=== PATIENT | male | born 1965 | race Caucasian/White ===

== ENCOUNTER 2017-11-22 23:33 | Emergency (ER) | payer BC, OTHER ==
[2017-11-23] MEDS ORDERED: ASPIRIN 81 MG CHEWABLE TABLET ONE (00:28)
[2017-11-23 00:34] LABS: Absolute Lymphocytes (CBC) 2.1 K/uL (0.7-4.9); Absolute Neutrophil 3.7 K/uL (1.8-8.0); Basophils % 0.9 % (0-1.3); Eosinophils % 5.4 % (0-4.4); Hematocrit 41.7 % (39.6-49.0); Lymphocytes % 29.5 % (15.3-44.8); MCH 31.6 pg (27.0-35.0); MCV 91.9 fL (80-100); Monocytes % 13.3 % (3.3-12.3); RBC Red Blood Cell Count 4.54 M/uL (4.33-5.43)
[2017-11-23 00:46] LABS: Potassium 3.6 mEq/L (3.6-5.0)
[2017-11-23 00:48] LABS: Protime INR 1.01
[2017-11-23 00:53] LABS: Albumin 4.1 g/dL (3.2-5.5); Bilirubin Direct 0.1 mg/dL (0-0.2); Bilirubin Total 0.7 mg/dL (0.3-1.2)
[2017-11-23 01:17] LABS: CKMB Creatine Kinase MB 2.4 ng/ml (0.3-4.0)
--- NOTE | 2017-11-23 03:13 | EDPHYS ---
Physician Documentation [facility] Name: Michelle Herndon Age: 52 yrs Sex: Male : 1965 Arrival Date: 11/22/2017 Time: 23:37 Bed 26 Private MD: ED Physician Rodrigo Callahan HPI: 11/23 00:16 This 52 yrs old Male presents to ER via Ambulatory with complaints of Chest cp Pain, Arm Pain. 00:16 The patient or guardian complains of pain, that is acute. anterior left shoulder. cp Context: pain awoke patient this evening. 00:16 Associated signs and symptoms: Pertinent negatives: diaphoresis, dyspnea, neck pain, cp Numbness in left arm Weakness in left arm. 00:16 Onset: The symptoms/episode began/occurred at 21:30. Modifying factors: The symptoms cp are aggravated by nothing. Severity of symptoms: in the emergency department the symptoms have improved, moderately. Historical: - Allergies: 11/22 23:52 No Known Allergies; ed1 - Home Meds: 23:52 None [Active]; ed1 - PMHx: 23:52 None; ed1 - PSHx: 23:52 None; ed1 - Immunization history:: Adult Immunizations up to date. - Social history:: Smoking status: Patient/guardian denies using tobacco, Patient uses alcohol, only on a social basis. ROS: 11/23 00:20 Constitutional: Negative for body aches, chills, fever, poor PO intake. cp 00:20 Eyes: Negative for injury, pain, redness, and discharge. cp 00:20 ENT: Negative for drainage from ear(s), ear pain, sore throat, difficulty swallowing, difficulty handling secretions. 00:20 Neck: Negative for pain with movement, pain at rest, rash, stiffness, tenderness, bony tenderness. 00:20 Cardiovascular: Negative for edema, palpitations. 00:20 Respiratory: Negative for cough, shortness of breath, wheezing. 00:20 Abdomen/GI: Negative for abdominal pain, nausea, vomiting, and diarrhea, black/tarry stool, rectal bleeding. 00:20 Back: Negative for pain at rest, pain with movement, radiated pain. 00:20 MS/extremity: Positive for pain, of the anterior left shoulder, Negative for injury or acute deformity, decreased range of motion, paresthesias. 00:20 Skin: Negative for cellulitis, rash. 00:20 Neuro: Negative for altered mental status, dizziness, loss of consciousness, syncope, near syncope, weakness. 00:20 All other systems are negative. Exam: 00:30 ECG was reviewed by the Attending Physician. cp 00:30 Constitutional: The patient appears in no acute distress, alert, awake, cp non-diaphoretic, non-toxic, well developed, well nourished. 00:30 Head/Face: Normocephalic, atraumatic. Eyes: Pupils equal round and reactive to light, cp extra-ocular motions intact. Lids and lashes normal. Conjunctiva and sclera are non-icteric and not injected. Cornea within normal limits. Periorbital areas with no swelling, redness, or edema. ENT: Nares patent. No nasal discharge, no septal abnormalities noted. Tympanic membranes are normal and external auditory canals are clear. Oropharynx with no redness, swelling, or masses, exudates, or evidence of obstruction, uvula midline. Mucous membranes moist. Neck: Trachea midline, no thyromegaly or masses palpated, and no cervical lymphadenopathy. Supple, full range of motion without nuchal rigidity, or vertebral point tenderness. No Meningismus. Chest/axilla: Normal chest wall appearance and motion. Nontender with no deformity. No lesions are appreciated. 00:30 Cardiovascular: Rate: normal, Rhythm: regular, Pulses: Pulses are 2+ in right radial artery and left radial artery. Heart sounds: murmur, not appreciated, rub, not appreciated, gallop, not appreciated, Edema: is not appreciated, JVD: is not appreciated. 00:30 Respiratory: the patient does not display signs of respiratory distress, Respirations: normal, no use of accessory muscles, no retractions, no splinting, no tachypnea, labored breathing, is not present, Breath sounds: are clear throughout, no decreased breath sounds, no stridor, no wheezing. 00:30 Abdomen/GI: Inspection: abdomen appears normal, Bowel sounds: active, all quadrants, Palpation: abdomen is soft and non-tender, in all quadrants. 00:30 Back: pain, is absent, ROM is normal. 00:30 Musculoskeletal/extremity: Extremities: grossly normal except: noted in the anterior left shoulder: pain, tenderness, There is no evidence of decreased ROM, deformity, ROM: full active range of motion, in the left shoulder, Sensation intact. 00:30 Skin: cellulitis, is not appreciated, no rash present. 00:30 Neuro: Orientation: to person, place \T\ time. Mentation: lucid, able to follow commands, Cerebellar function: is grossly normal, Motor: moves all fours, strength is normal, Sensation: no obvious gross deficits. 02:33 ECG was reviewed by the Attending Physician. cp Vital Signs: 11/22 23:52 BP 128 / 75; Pulse 58; Resp 13; Temp 98.4(O); Pulse Ox 96% on R/A; Weight 111.13 kg ed1 (R); Height 5 ft. 11 in. (180.34 cm); Pain 3/10; 11/23 01:12 BP 121 / 79; Pulse 61; Resp 18; Pulse Ox 97% on R/A; mb3 02:10 BP 129 / 78; Pulse 56; Resp 18; Pulse Ox 96% on R/A; mb3 02:56 BP 121 / 75; Pulse 56; Resp 18; Pulse Ox 96% on R/A; mb3 11/22 23:52 Body Mass Index 34.17 (111.13 kg, 180.34 cm) ed1 MDM: 00:12 Patient medically screened. cp 03:07 Differential diagnosis: tendonitis, acute SC, biceps tendonitis, pneumothorax. Data cp reviewed: vital signs, nurses notes, EKG, radiologic studies, plain films. Test interpretation: by ED physician or midlevel provider: ECG, plain radiologic studies. 11/23 00:19 Order name: Basic Metabolic Panel; Complete Time: : cp 11/23 01:04 Interpretation: Normal except: BUN 24; GFR 76. cp 11/23 00:19 Order name: BNP; Complete Time: : cp 11/23 00:19 Order name: CBC with Diff; Complete Time: 01:03 cp 11/23 01:04 Interpretation: Normal except: MN% 13.3; EOSINOPHIL % 5.4. cp 11/23 00:19 Order name: Ckmb; Complete Time: :41 cp 11/23 00:19 Order name: CPK; Complete Time: 01: cp 11/23 01:03 Interpretation: Abnormal: CPK 275. cp 11/23 00:19 Order name: LFT's; Complete Time: 01: cp 11/23 00:18 Order name: Chest Single View XRAY ed1 11/23 00:19 Order name: Magnesium; Complete Time: 01:41 cp 11/23 00:19 Order name: PT-INR; Complete Time: 01:03 cp 11/23 00:19 Order name: Ptt, Activated; Complete Time: 01:03 cp 11/23 00:19 Order name: Troponin (emerg Dept Use Only); Complete Time: 01:41 cp 11/23 00:25 Order name: XRAY Shoulder LEFT 2 view cp 11/23 02:15 Order name: Troponin I cp 11/23 00:19 Order name: EKG; Complete Time: 00:20 cp 11/23 00:19 Order name: Cardiac monitoring; Complete Time: 00: cp 11/23 00:19 Order name: EKG - Nurse/Tech; Complete Time: 00: cp 11/23 00:19 Order name: IV Saline Lock; Complete Time: 00: cp 11/23 00:19 Order name: Labs collected and sent; Complete Time: 00: cp 11/23 00:19 Order name: O2 Per Protocol; Complete Time: 00: cp 11/23 00:19 Order name: O2 Sat Monitoring; Complete Time: 00: cp 11/23 02:15 Order name: EKG - Nurse/Tech; Complete Time: 02:55 cp EC:30 Rate is 66 beats/min. Rhythm is regular. UT interval is normal. QRS interval is normal. cp QT interval is normal. No ST changes noted. Interpreted by me. Reviewed by me. 02:33 Rate is 56 beats/min. Rhythm is regular. UT interval is normal. QRS interval is normal. cp QT interval is normal. T waves are Flattened in lead III. No ST changes noted. Interpreted by me. Reviewed by me. Administered Medications: 00:29 Drug: Aspirin Chewable Tablet 324 mg Route: PO; ed1 02:55 Follow up: Response: No adverse reaction mb3 Disposition: 06:25 Co-signature as Attending Physician, Rodrigo Callahan MD. pkl Disposition: 11/23/17 03:12 Discharged to Home. Impression: Pain in left shoulder. - Condition is Stable. - Discharge Instructions: Musculoskeletal Pain, Shoulder Pain, Aspirin and Your Heart. - Prescriptions for Naprosyn 500 mg Oral Tablet - take 1 tablet by ORAL route 2 times per day take with food; 20 tablet. - Medication Reconciliation Form, Thank You Letter, Antibiotic Education, Prescription Opioid Use form. - Follow up: Zachery Martin MD; When: 1 - 2 days; Reason: Recheck today's complaints. - Problem is new. - Symptoms have improved. Signatures: Dispatcher [employer] EDIN Rodrigo Callahan MD MD pkl Idalmis Dave, TOOL SALVAGE WORKER TOOL SALVAGE WORKER ed1 Jayesh Qureshi PA PA cp Barnett, Mark RN RN mb3 Corrections: (The following items were deleted from the chart) 00:29 00:20 Chest Single View+RAD.RAD.BRZ ordered. [facility] EDIN 03:16 03:12 11/23/2017 03:12 Discharged to Home. Impression: Pain in left shoulder. Condition mb3 is Stable. Forms are Medication Reconciliation Form, Thank You Letter, Antibiotic Education, Prescription Opioid Use. Follow up: Zachery Martin; When: 1 - 2 days; Reason: Recheck today's complaints. Problem is new. Symptoms have improved. cp
--- NOTE | 2017-11-23 03:13 | ER ---
Nurse's Notes [facility] Name: Michelle Herndon Age: 52 yrs Sex: Male : 1965 Arrival Date: 11/22/2017 Time: 23:37 Bed 26 Private MD: Diagnosis: Pain in left shoulder Presentation: 11/22 23:50 Presenting complaint: Patient states: I woke up and my chest was hurting all the way ed1 over to my left arm and elbow. Transition of care: patient was not received from another setting of care. Onset of symptoms was November 22, 2017. Initial Sepsis Screen: Does the patient meet any 2 criteria? No. Patient's initial sepsis screen is negative. Does the patient have a suspected source of infection? No. Patient's initial sepsis screen is negative. Care prior to arrival: Medication(s) given: Christina-malindaer. 23:50 Method Of Arrival: Ambulatory ed1 11/23 00:05 Acuity: GRETA 3 mb3 Triage Assessment: 11/22 23:52 General: Appears in no apparent distress. Behavior is calm, cooperative. Pain: ed1 Complains of pain in chest Pain radiates to left arm Pain currently is 3 out of 10 on a pain scale. at worst was 6 out of 10 on a pain scale. Quality of pain is described as sharp, Pain began 1 hour ago. Is continuous. Cardiovascular: Reports chest pain, Denies diaphoresis, fatigue, lightheadedness, nausea, palpitations, shortness of breath, syncope, vomiting, Heart tones S1 S2 present Capillary refill < 3 seconds Clubbing of nail beds is absent JVD is absent Patient's skin is warm and dry. Pulses are all present. Edema is absent. Rhythm is sinus rhythm Chest pain is described as mild, quality is sharp, is located in chest wall radiates to left arm(s) began 1 hour prior to arrival episodes are continuous. Historical: - Allergies: 23:52 No Known Allergies; ed1 - Home Meds: 23:52 None [Active]; ed1 - PMHx: 23:52 None; ed1 - PSHx: 23:52 None; ed1 - Immunization history:: Adult Immunizations up to date. - Social history:: Smoking status: Patient/guardian denies using tobacco, Patient uses alcohol, only on a social basis. Screenin:55 Abuse screen: Denies threats or abuse. Denies injuries from another. Nutritional ed1 screening: No deficits noted. Tuberculosis screening: No symptoms or risk factors identified. Fall Risk None identified. Assessment: 23:55 General: Appears in no apparent distress. Behavior is calm, cooperative. Pain: ed1 Complains of pain in chest Pain radiates to left arm Pain currently is 3 out of 10 on a pain scale. Quality of pain is described as sharp, Pain began 1 hour ago. Is continuous. Neuro: Level of Consciousness is awake, alert, obeys commands, Oriented to person, place, time, situation. Cardiovascular: Reports chest pain, Denies diaphoresis, fatigue, lightheadedness, nausea, palpitations, shortness of breath, syncope, vomiting, Heart tones S1 S2 present Capillary refill < 3 seconds in bilateral fingers Clubbing of nail beds is absent JVD is absent Patient's skin is warm and dry. Pulses are all present. Edema is absent. Rhythm is sinus rhythm Chest pain is described as mild, quality is sharp, is located in chest wall radiates to left arm(s) began 1 hour prior to arrival episodes are continuous. Respiratory: Airway is patent Respiratory effort is even, unlabored, Respiratory pattern is regular, symmetrical, Breath sounds are clear bilaterally. Denies cough, shortness of breath. GI: No signs and/or symptoms were reported involving the gastrointestinal system. : No signs and/or symptoms were reported regarding the genitourinary system. EENT: No signs and/or symptoms were reported regarding the EENT system. Derm: Skin is pink, warm \T\ dry. 11/23 00:00 Reassessment: I agree with above assessment. fc 01:12 Reassessment: No changes from previously documented assessment. Patient and/or family mb3 updated on plan of care and expected duration. Pain level reassessed. Patient is alert, oriented x 3, equal unlabored respirations, skin warm/dry/pink. 02:10 Reassessment: No changes from previously documented assessment. Patient and/or family mb3 updated on plan of care and expected duration. Pain level reassessed. Patient is alert, oriented x 3, equal unlabored respirations, skin warm/dry/pink. Vital Signs: 11/22 23:52 BP 128 / 75; Pulse 58; Resp 13; Temp 98.4(O); Pulse Ox 96% on R/A; Weight 111.13 kg ed1 (R); Height 5 ft. 11 in. (180.34 cm); Pain 3/; 11/23 01:12 BP 121 / 79; Pulse 61; Resp 18; Pulse Ox 97% on R/A; mb3 02:10 BP 129 / 78; Pulse 56; Resp 18; Pulse Ox 96% on R/A; mb3 02:56 BP 121 / 75; Pulse 56; Resp 18; Pulse Ox 96% on R/A; mb3 11/22 23:52 Body Mass Index 34.17 (111.13 kg, 180.34 cm) ed1 ED Course: 11/22 23:37 Patient arrived in ED. al2 23:50 Idalmis Dave LVN is Primary Nurse. ed1 23:52 Arm band placed on left wrist. ed1 23:55 Patient has correct armband on for positive identification. Placed in gown. Bed in low ed1 position. Call light in reach. Adult w/ patient. monitoring manager on. Pulse ox on. NIBP on. 23:55 Initial lab(s) drawn, by ED staff, held in ED. Inserted saline lock: 20 gauge in right ed1 forearm, using aseptic technique. Blood collected. Patient maintains SpO2 saturation greater than 95% on room air. 11/23 00:05 Triage completed. mb3 00:11 Jayesh Qureshi PA is PHCP. cp 00:11 Rodrigo Callahan MD is Attending Physician. cp 00:27 X-ray completed. Portable x-ray completed in exam room. Patient tolerated procedure kw well. 00:32 Chest Single View XRAY In Process Unspecified. EDMS 00:45 XRAY Shoulder LEFT 2 view In Process Unspecified. EDMS 03:12 Zachery Martin MD is Referral Physician. cp 03:16 No provider procedures requiring assistance completed. IV discontinued, intact, mb3 bleeding controlled, No redness/swelling at site. Pressure dressing applied. Administered Medications: 00:29 Drug: Aspirin Chewable Tablet 324 mg Route: PO; ed1 02:55 Follow up: Response: No adverse reaction mb3 Outcome: 03:12 Discharge ordered by . cp 03:16 Discharged to home ambulatory. mb3 03:16 Condition: stable 03:16 Discharge instructions given to patient, Instructed on discharge instructions, follow up and referral plans. medication usage, Demonstrated understanding of instructions, follow-up care, medications, Prescriptions given X 1. 03:16 Patient left the ED. mb3 Signatures: Dispatcher [employer] EDMS Anai Villafana, RN RN Idalmis Joyce LVN LVN ed1 Shabana Atkinson Corey, PA PA cp Love, Angelica al2 Sean Aparicio RN RN mb3
--- NOTE | 2017-11-23 07:57 | EKG ---
Test Date: 2017-11-23 Test Time: 02:26:21 Carpentry Teacher: MB MEASUREMENT RESULTS: Intervals: Rate: 56 MT: 154 QRSD: 98 QT: 422 QTc: 407 Rumely: P: 48 MT: 154 QRS: 29 T: 33 INTERPRETIVE STATEMENTS: Sinus bradycardia Otherwise normal ECG Compared to ECG 11/23/2017 00:00:26 Sinus rhythm no longer present Electronically Signed On 11-23-17 07:57:37 CDT by Lewis Bender
--- NOTE | 2017-11-23 07:59 | EKG ---
Test Date: 2017-11-23 Test Time: 00:00:26 Sas Clinical Programmer: MB MEASUREMENT RESULTS: Intervals: Rate: 66 NH: 148 QRSD: 100 QT: 396 QTc: 415 Ola: P: 31 NH: 148 QRS: 23 T: 32 INTERPRETIVE STATEMENTS: Normal sinus rhythm Normal ECG Compared to ECG 03/27/2015 16:36:54 Sinus bradycardia no longer present Electronically Signed On 11-23-17 07:58:25 CDT by Lewis Bender
--- NOTE | 2017-11-25 11:05 | RAD REPORT ---
EXAM DESCRIPTION: RAD - Chest Single View - 11/23/2017 12:32 am CLINICAL HISTORY: Chest pain. COMPARISON: None. FINDINGS: Portable technique limits examination quality. The lungs are grossly clear. The heart is normal in size. No displaced fractures. IMPRESSION: No acute intrathoracic process suspected.
--- NOTE | 2017-11-25 11:06 | RAD REPORT ---
EXAM DESCRIPTION: RAD - Shoulder Left 2 View - 11/23/2017 12:48 am CLINICAL HISTORY: Left shoulder pain COMPARISON: None. FINDINGS: No bone or joint abnormality is seen.
== END 2017-11-23 03:16 | disposition home or self-care (01) ==
LOC: ER 23:33
DX: M25.512 Pain in left shoulder (principal)
CPT/HCPCS: 36415; 71045; 80048; 80076; 82550; 82553; 83735; 83880; 84484; 85025; 85610; 85730; 93005; 99285